=== PATIENT | female | born 1955 | race Caucasian/White ===

== ENCOUNTER 2016-11-11 03:26 | Inpatient (IN) | payer OTHER ==
[2016-11-11] VITALS (8 sets, daily range): BP systolic 108–147; BP diastolic 56–85; PULSE 78–105; RESP 15–20; O2SAT 86–98
--- NOTE | 2016-11-11 03:24 | ED.REPORT ---
HPI-Chest Pain 40 and Over Date of Service November 11, 2016 ED Provider: Vinh Sainz MD The pt is a 61 y/o female w/ a hx of COPD, depression, diabetes HTN, and high cholesterol presenting to the ED complaining of neck, shoulder and chest pain which woke her from sleep. She describes the pain as a heavy pressure and a 7/ 10 severity. She is also experiencing nausea, vomiting, diaphoresis. She is taking metformin and Estroven, as well as several other meds. She has never had any stroke symptoms or heart problems in the past. She denies change in exercise capacity, or intermittent claudication/ cramping in her legs when she walks. She continues to smoke a half pack a day, and formerly smoked a pack a day. Nursing Notes Stated Complaint: STEMI Chief Complaint: Trauma/Critical Care Nursing Notes Reviewed: Yes General Time Seen by MD: 03:24 Chief Complaint Chest pain Hx Obtained From: Patient Arrived By: Ambulance Sudden in Onset?: Yes Symptom Duration: Since onset Recent Healthcare: No recent doctor visit, No recent hospitalization Similar Sx Previous: No Risk Factors )( CAD Risk Stratification Diabetes mellitus Family history Hyperlipidemia Hypertension Smoking Risk factors reviewed Past Medical History Past Medical History COPD Depression Diabetetes HTN High cholesterol Past Surgical History None reported Smoking History Unknown if Ever Smoker Ambulatory Status Independent Review of Systems Denies cramping in legs while she walks. Cardiovascular: Reports: Chest pain GI: Reports: Nausea, Vomiting Musculoskeletal: Reports: Joint pain (Shoulder), Neck pain Skin: Reports Diaphoresis Complete sys rev & neg: except as marked. Physical Exam Initial Vital Signs Vital Signs (First) Date Time Temp Pulse Resp B/P Pulse Ox O2 Delivery O2 Flow Rate FiO2 11/11/16 03:31 36.4 86 15 147/85 95 Nasal Cannula 4 Initial VS: Reviewed General/Constitutional: Awake, Alert Respiratory / Chest: Breath sounds NL, Breath sounds = bilat, No respiratory distress, No rales, No rhonchi, No wheezing, No stridor, No chest tenderness Cardiovascular: Heart rate NL, Regular rhythm, Heart sounds NL, No murmurs, Peripheral circulation NL, Pulses = bilaterally, No gross BP differential Abdomen: Soft, Non-tender Neck: Atraumatic, Full range of motion Back: Atraumatic, Full range of motion Lower Extremity / Pelvis / MS: Atraumatic, Full range of motion Skin: Color NL, No rash, Warm Head / Eyes: Atraumatic, Normocephalic ENT: Atraumatic, Airway patent, Mucous membranes moist Interpretation & Diagnostics Lab Results Interpretation Result Diagram: 11/11/1644911/11/16449 Re-Eval/Medical Decision Med Decision/Clinical Course 61-year-old presents from [facility] with changes of an obvious inferior wall [place]. Transported as soon as that was recognized for intervention here. Seen immediately by the cath team and transported in critical condition to the cardiac cath lab manager for intervention. Source of Hx: Old records Counseled Regarding: Diagnosis, Lab results, Need for follow-up, When/why to return to ED Discharge & Departure Shift Change Sign-Out Response to Therapy: Unchanged Primary Impression: ST elevation (STEMI) myocardial infarction involving right coronary artery Disposition: Home Discharge Condition All VS Reviewed: Yes Condition: Stable Referrals: [facility] Scribe Attestation Portions of this note were transcribed by Alex Perez. I, Dr. Sainz personally performed the history, physical exam and medical decision-making; I reviewed and confirmed the accuracy of the information in the transcribed note. Signed by : Asher Moreno, 11/11/16 and 0612. copies to: [facility] Vinh Sainz MD November 11, 2016 03:24 Alex Perez November 11, 2016 06:09
[~2016-11-11 03:26] MED LIST: 0.9% Sodium Chloride 1,000 ML ONE; Heparin 1,000 Unit/mL 10 mL Inj ONE; Heparin 1,000 Units/500 mL NS Premix IV ONE; Heparin 10,000 Unit/1,000 mL NS Premix IV ONE; Nitroglycerin 50,000 mcg/250 mL D5W Premix IV ONE
[2016-11-11] MEDS ORDERED: fentaNYL-PF 50 mCg/mL 2 mL Inj ONE (03:48)
[2016-11-11] MEDS ORDERED: Atropine 1 mg/10 mL (Code) Syringe ONE ×2 (04:03→04:58)
[2016-11-11] MEDS ORDERED: Heparin 1,000 Unit/mL 10 mL Inj ONE (04:03)
[2016-11-11] MEDS ORDERED: DOPamine 800 mg/250 mL D5W Premix IV ONE (04:20)
[2016-11-11] MEDS ORDERED: NitroPRUSSIDE 25,000 mCg/mL 2 mL Inj IV ONE (04:21)
[2016-11-11] MEDS ORDERED: Heparin 1,000 Units/500 mL NS Premix IV ONE (04:21)
[2016-11-11] MEDS ORDERED: Dextrose 5% 250 ML IV ONE (04:23)
[2016-11-11] MEDS ORDERED: Phenylephrine/NS-PF 100 mCg/mL 5 mL Syringe IVPUSH ONE (04:41)
[2016-11-11 04:59] LABS: BASOPHILS % (AUTO) 0.3 % (0-3); EOSINOPHILS % (AUTO) 1.4 % (0-5); MONOCYTES % (AUTO) 6.4 % (4-12); Mean Corpuscular Hemoglobin 29.6 pg (27.0-35.0); Mean Corpuscular Volume 91.5 fL (81-100); NEUTROPHILS % (AUTO) 67.4 % (40-74); Platelet Count 242 bil/L (150-400)
[2016-11-11 05:59] LABS: Creatine Kinase 78 U/L (21-215); TROPONIN T 0.019 ug/L (0.0-0.011)
[2016-11-11] MEDS ORDERED: Sodium Chloride LOK Flush 10 mL Syringe IVFLUSH PRN (07:05)
[2016-11-11] MEDS ORDERED: Ondansetron 2 mg/mL 2 mL Inj IVPUSH PRN ×2 (07:05→07:40)
[2016-11-11] MEDS ORDERED: 0.9% Sodium Chloride 1,000 ML IV ONE (07:05)
[2016-11-11] MEDS ORDERED: Atropine 1 mg/10 mL (Code) Syringe IVPUSH PRN (07:05)
[2016-11-11] MEDS ORDERED: 0.9% Sodium Chloride 250 ML BOLUS IV PRN (07:05)
[2016-11-11] MEDS ORDERED: Polyethylene Glycol (PEG) 17 Gm Powder PO PRN (07:40)
[2016-11-11] MEDS ORDERED: Alum-Mag Hydrox-Simeth 30 mL Suspension PO PRN (07:40)
--- NOTE | 2016-11-11 07:46 | CONS ---
[address] [address] CONSULTATION REPORT PATIENT: SOY ALVAREZ : 1955 MR#: [id number] ADMIT: 11/11/2016 JOB ID: [id number] DATE OF SERVICE: 11/11/2016 CARDIOLOGY CONSULTATION NOTE-INITIAL CRITICAL CARE EVALUATION (EMERGENCY DEPARTMENT): DATE OF EVALUATION: Friday, November 11, 2016. CONSULTING PHYSICIAN: Cardiology--Constantine Hopson MD. PROBLEMS: 1. Acute coronary syndrome (ACS): a. Chest pain. b. STEMI--acute inferior myocardial infarction with: including inferior ST-elevation or reciprocal ST depression. CORONARY ARTERY RISK FACTORS: 1. Cigarette smoking-current smoking. 2. Diabetes. 3. Hypertension, treated. 4. Hyperlipidemia, treated. 5. No family history of premature coronary disease. OTHER PROBLEMS: 1. Morbid obesity. 2. COPD--mild to moderate chronic dyspnea. CHIEF COMPLAINT: "STEMI". HISTORY OF PRESENT ILLNESS: EMERGENCY DEPARTMENT PRESENTATION: I was called by the emergency department physician and met this 61-year-old woman on arrival by EMS from [facility] where she had initially presented shortly after the onset of severe retrosternal chest discomfort, intensity 7 on this on a scale of 10, which radiated to her neck and bilateral shoulders. She had associated heavy diaphoresis, but no nausea, vomiting, dyspnea or lightheadedness. Her chest discomfort was partly relieved by NTG; she had some mild residual chest discomfort on arrival and then became chest pain free early in the catheterization laboratory consistent with spontaneous recanalization of occluded artery. Initial treatment included ASA and some heparin (dose unknown). CARDIAC HISTORY: She has no prior history of heart disease. She had no premonitory symptoms. She is generally fairly active around her house without anginal symptoms. She does not have a history of heart failure or symptoms of heart failure including nocturnal dyspnea or edema. She does have some chronic exertional dyspnea, functional class II that she attributes to "COPD." She has no history of arrhythmia or current symptoms of arrhythmia including tachy palpitation, presyncope or syncope. Regarding other underlying vascular disease, she has no history of CVA and no current symptoms of TIA. No claudication, on further questioning even after we found occluded iliac arteries, she does not endorse claudication. Regarding dual antiplatelet therapy, she reports no current bleeding symptoms, no anticipated surgery, and she indicates she is reliable to take mandatory medicines if needed. ALLERGIES: In the emergent setting she reports no known allergies. I do not elicit allergy to medical contrast, seafood, fish, iodine or shellfish. MEDICATIONS: Metformin. Others not specified in the emergent setting at the time of admission. MEDICAL HISTORY: She reports she is otherwise generally well. REVIEW OF SYSTEMS: I questioned her in the emergent setting regarding a 13 point review of systems which is unremarkable, noncontributory or negative except as noted including no history of thyroid disorder. Pulmonary history includes a history of "COPD" without further details available, but she does not report symptoms of chronic bronchitis. She has mild to moderate chronic exertional dyspnea. No history of GI disorder including hepatitis, jaundice, ulcer or indigestion. PERSONAL AND SOCIAL HISTORY: Cigarettes: She has smoked cigarettes up to one pack a day currently and since age 14 (47 pack years.) Alcohol: She does not report heavy alcohol use. FAMILY HISTORY: No family history of premature coronary disease. PHYSICAL EXAMINATION: General appearance: Pleasant, morbidly obese, middle-aged woman, who is moderately uncomfortable with chest discomfort. Vital Signs: Blood pressure initially 147/85 with heart rate 86, regular in sinus rhythm on telemetry including overt ST-elevation, respiratory rate 18 and unlabored, afebrile. Pulse ox oximetry 95% on 4 L nasal cannula. Weight reported 85 kg. Neurologic and mental status: No overt focal neurologic defect noted. She is alert, oriented, appropriate and conversant. HEENT: PERRL. Conjunctivae pink. Sclerae not icteric. Mouth and mucous membranes intact with Mallampati 4. Neck: Carotid upstroke difficult to feel, but no bruit bilaterally. Jugular venous pressure difficult to assess due to body habitus supine. No palpable thyromegaly. No palpable cervical lymphadenopathy. Lungs: Clear to auscultation bilaterally, examined supine. Cardiac: No chest wall tenderness. Cardiac examination notable for regular rhythm, S4 gallop and there is no loud murmur heard. Abdomen: Markedly obese but otherwise unremarkable without tenderness, mass, hepatosplenomegaly or bruit of abdominal aortic aneurysm. Extremities: No edema. No palpable pedal pulses bilaterally, and there are no palpable bilateral femoral arterial pulses. DIAGNOSTIC STUDIES: ELECTROCARDIOGRAM: I reviewed the initial ECG from [facility] and the initial ECG here. There is sinus rhythm with marked inferior ST elevation more in lead 3 than in lead 2, and confirmatory reciprocal ST depression, as well as right precordial ST depression. The impression is acute inferior ME with likely RCA culprit. CHEST X-RAY: Not done in the emergent setting. LABORATORY: CBC includes WBC 8900 with hemoglobin 12.8, hematocrit 39.6, normal indices and platelet count 242,000. Chemistries includes potassium 4.1, creatinine 0.62. GFR 139, glucose 212. LFT unremarkable. Initial cardiac markers include CK total 78, CK-MB 3.2. Troponin T elevated at 0.019. ASSESSMENT: I discussed the findings, impressions and management considerations with the patient (no family present), with the emergency department physician from [facility], with the emergency department physician here and with the hospitalist team includin. Acute coronary syndrome with inferior acute ST elevation myocardial infarction. This is the first presentation of heart disease. 2. The clinical impression is that of her chest discomfort and overt ST-elevation on electrocardiogram is acute inferior myocardial infarction with likely right coronary artery infarct-related artery. 3. She is otherwise hypertensive and clinically stable on admission. I discussed the recommendation to proceed with emergent coronary angiogram for definitive diagnosis and to guide treatment. Decisions including medical therapy, anticipated PCI and consideration of coronary bypass surgery if needed. We discussed the procedure including possible risks and complications. I discussed bleeding, infection, blood clots; as well as injury to nerve, artery, vein or kidney and also arrhythmia, drug reaction or others. We discussed treatment as needed including pacemaker transfusion and surgery. We discussed more serious complications that are possible including stroke, heart attack, cardiac arrest, and emergency surgery, including transfer for coronary bypass surgery. After discussion and questions, he signed informed consent to proceed. RECOMMENDATIONS: 1. Cardiac catheterization with coronary angiogram and anticipated PCI--emergent. 2. Echocardiogram. 3. Admit to the hospitalist service to CCU. 4. OMT--guideline directed optimal medical therapy of her anticipated coronary disease and underlying risk factors including aspirin, statin, beta magnolia, LUCIO inhibitor later after contrast and cigarette smoking cessation. 5. Evaluate peripheral vascular disease that became evident at the catheterization including bilaterally occluded iliac arteries.
--- NOTE | 2016-11-11 08:06 | DRSVH ---
PROCEDURE: X-RAY CHEST ONE VIEW, PORTABLE ([id number]) INDICATIONS: POST CATH PROCEDURE TECHNIQUE: One view of the chest was acquired. COMPARISON: None. FINDINGS: Surgical changes and devices: None. Lungs and pleura: No pleural effusions or pneumothorax. Mild diffuse interstitial pulmonary opacity. Mediastinum: Mediastinal contours appear normal. Heart size is normal. Bones and chest wall: No suspicious bony lesions. Overlying soft tissues appear unremarkable. IMPRESSION: Mild pulmonary edema. Dictated by: Marielena Gardner M.D. on 11/11/2016 at 8:04 Approved by: Marielena Gardner M.D. on 11/11/2016 at 8:05
--- NOTE | 2016-11-11 08:17 | CS94 ---
[address] [address] DIAGNOSTIC CARDIAC CATHETERIZATION PATIENT: SOY ALVAREZ : 1955 MR#: [id number] ADMIT: 11/11/2016 JOB ID: [id number] SERVICE DATE: 11/11/2016 INSPECTOR CIRCUITRY NEGATIVE: Constantine Hopson MD PROCEDURES: 1. Coronary angiogram--emergent. 2. Left heart catheterization (LHC)--pressure measurement. 3. Percutaneous coronary intervention (PCI): a. Stent of proximal RCA--Xience (JAVED) 3.25 x 15 mm (drug-eluting stent); post dilated to 4 mm. b. Percutaneous transluminal coronary angioplasty of RPDA (balloon angioplasty for thrombus). c. Percutaneous transluminal coronary angioplasty of RPROB (balloon angioplasty for thrombus). CLINICAL DETAILS: This 61-year-old woman has no prior known heart disease; and CAD risk factors include diabetes, hypertension, hyperlipidemia, and current cigarette smoking. She presented to the catheterization laboratory after transfer to the emergency department from [facility] where she presented after the onset of severe retrosternal chest discomfort. ECG showed overt inferior ST elevation with confirmatory reciprocal ST depression. PROCEDURAL DETAILS: I met her emergently on her arrival in the emergency department. She had ongoing chest discomfort and hypertension. I discussed the findings, impressions and management considerations with her including the recommendation for emergent coronary angiogram and anticipated PCI. We discussed the procedure including possible risks and complications. After discussion and questions, she signed informed consent to proceed. She was taken to the catheterization laboratory where she was prepped sterilely and draped for the procedure. Treatment prior to the procedure included ASA and some heparin prior to transfer here. CORONARY ANGIOGRAM: 1. First arterial access was obtained in the right common femoral artery without difficulty using fluoroscopic localization over the femoral head and modified Seldinger technique to insert a 10 cm 6-Northern Irish side-arm sheath. The guidewire would not pass beyond the iliac. A reverse core wire would not pass beyond the iliac. A side-arm sheath angiogram showed occlusion of the right common iliac artery. 2. Note, there was no palpable pulse at the right groin access site. 3. Arterial access was sought at the left common femoral artery similarly using fluoroscopic localization over the femoral head and modified Seldinger technique. Note again, there was no palpable pulse at the left femoral site. Arterial access was achieved however without difficulty. Again, the sheath guidewire would not advance beyond the left iliac. A 4-Northern Irish side-arm sheath was inserted. A side-arm sheath angiogram again showed occlusion of the left iliac artery. 4. Arterial access was achieved at the right radial artery without difficulty using a micro puncture technique to insert a 6-Northern Irish slender, thin-walled, hydrophilic sheath in the right radial artery. A 6-Northern Irish JR-4 guide catheter was advanced over a long radial 1.5 mm J tipped guidewire to the aortic root for angiography. Catheters were advanced and exchanged over an exchange length guidewire. The right coronary artery was 1st imaged using the 6-Northern Irish JR-4 guide. After the intervention, the left coronary artery was imaged using a 6-Northern Irish JL-3.5 diagnostic catheter. LHC: The right coronary guide entered the left ventricle and LV pressures and pullback were recorded. PCI OF PROXIMAL RCA WITH PTCA OF RPDA AND RPLB: Diagnostic images were reviewed. Decision was made to proceed with emergent PCI of the subtotally, occluded thrombotic culprit proximal 95% RCA lesion (LATANYA 2-3 flow). For the intervention, the patient received a bolus IV heparin to achieve therapeutic ACT. A loading dose of prasugrel 60 mg chewed was given. Aliquots of NTGIC were used during the procedure. Nitroprusside 150 mcg IC was also used. PREDILATATION: The 6-Northern Irish JR-[address] guide was used for intervention. The lesion was crossed without difficulty with a BMW wire--0.014 inches x 190 cm--which was placed distally in the RCA. The proximal RCA culprit lesion was pre-dilated with a PTCA balloon trek--2.5 x 15 mm--inflated to 6 atmospheres to maximum 8 atmospheres. The lesion was improved. STENT: The lesion was treated with a Xience JAVED--3.25 x 15 mm--deployed across the lesion at 18 atmospheres. POSTDILATATION: The stent was post dilated with a noncompliant balloon Trek NC--3.75 x 12 mm--inflated within the stented segment to maximum of 20 atmospheres. (Estimated post dilated stent diameter 4.0 mm). PTCA (balloon angioplasty) of RPDA and RPLB: Both RPDA and RPLB had diffuse narrowing, as well as apparent distal thrombus. They were both treated with initially by passing a balloon trek--2.5 x 15 mm--into the artery; then additionally treated with balloon inflations to maximum 4 atmospheres. The RPDA was substantially improved. The RPLB was improved in its proximal segment where it had been occluded. Completion angiogram showed an excellent angiographic result at the culprit lesion with no residual stenosis, LATANYA-3 flow, and no angiographic complication. Estimated door to balloon time was about 81 minutes. Procedure without difficulty. Patient tolerated the procedure well. No complications. Arterial hemostasis at the right radial artery was achieved with a TR band. The bilateral femoral artery sheaths were sutured in place to be maintained to flush an arterial pressure transducer until removed when ACT is lower. The patient was transferred from the catheterization laboratory chest-pain free and in stable and improved condition to the CCU for ongoing care including by the admitting hospitalist service. I discussed the procedure findings and management considerations with the patient (no family present); with the hospitalist team; and with Cardiology. FINDINGS: 1. LMCA: Intact. 2. LAD: Intact without angiographic obstructive lesions. The left anterior descending coronary artery is a large transapical vessel with a large branching diagonal branch. 3. LCX: Intact. No angiographic stenoses noted. 4. RCA: Dominant. Note, culprit subtotal 95% tubular proximal RCA culprit lesion (LATANYA 2-3 flow). There is a visible filling defect consistent with thrombus at the site of the lesion. During the procedure, the distal RPDA and RPLB are occluded with apparent thrombus. 5. LHC: LVD 28; and no systolic gradient across the aortic valve on pullback. 6. Left iliac artery: Occluded. 7. Right iliac artery: Occluded. CONCLUSIONS: 1. PCI of proximal RCA--Xience 3.25 x 15 mm JAVED; post dilated to 4.0 mm. ACS--STEMI; acute inferior myocardial infarction; culprit proximal RCA lesion, subtotal lesion. 2. CAD (coronary artery disease)--single-vessel CAD of proximal RCA and RPDA and RPBL. 3. Peripheral vascular disease--occluded bilateral iliac arteries. 4. Elevated LVED. RECOMMENDATIONS: 1. ECASA 81 mg daily. 2. Plavix--plan one year if well tolerated including ongoing Cardiology followup. I discussed with the patient the critical importance of mandatory dual antiplatelet therapy and not to stop Plavix for any reason without immediate Cardiology consultation. 3. Admit to Hospitalist service for ongoing care. 4. Echocardiogram. 5. OMT--guideline directed optimal medical therapy for CAD and underlying risk factors including aspirin, Plavix, high-intensity statin, beta-magnolia and later LUCIO inhibitor. 6. Cigarette smoking cessation discussed with the patient. 7. Evaluate peripheral vascular disease in the lower extremities.
--- NOTE | 2016-11-11 13:46 | DRSVH ---
[facility] [address] [place] [address] Echocardiogram Report Name: SOY ALVAREZ RStudy Date: 11/11/2016 Height: 61 in Hospital Exam Location: [facility] Weight: 186 lb Gender: Other BSA: 1.9 m2 : 1955 Age: 61 yrs BP: 126/73 mmHg Reason For Study: POST-STEMI Ordering Physician: Performed By: Yasir Brownlee Interpretation Summary Technically difficult study due patient position. 1) Normal left ventricular thickness and size with mildly reduced functoin (EF 45-50%). 2) Hypokinesis of the basal to mid inferior wall and basal to mid inferolateral wall. 3) Normal right ventricular size and function. 4) Mild to moderate mitral regurgitation present. 5) No prior Echo available for comparison. Procedure: A two-dimensional transthoracic echocardiogram with color flow and Doppler was performed. The study quality was technically difficult. There is no prior echocardiogram noted for this patient. A contrast injection of Definity was performed to improve assessment of LV function. The patient was in sinus tachycardia with heart rates between 97-105 bpm during the exam. Left Ventricle: The left ventricle is grossly normal size. There is normal left ventricular wall thickness. The ejection fraction is estimated to be 45- 50%. Left ventricular systolic function is mildly reduced. Hypokinesis of the basal to mid inferior wall and basal to mid inferolateral wall. Diastolic function could not be accurately assessed due to tachycardia. Right Ventricle: The right ventricle grossly appears normal in size with probable normal systolic function. Atria: The left atrium grossly appears normal in size. The right atrium grossly appears normal in size. There is no Doppler evidence for an interatrial shunt. Mitral Valve: The mitral valve leaflets appear to open well. There is mild to moderate mitral regurgitation. Aortic Valve: The aortic valve is not well visualized. There is no hemodynamically significant valvular aortic stenosis. No aortic regurgitation is present. Tricuspid Valve: The tricuspid valve is not well visualized. Pulmonary artery pressures cannot be estimated because of the lack of a measurable TR jet velocity. Pulmonic Valve: The pulmonic valve is not well visualized. Great Vessels: The aortic root is normal size. The dimensions of the ascending aorta are normal. The pulmonary artery is not well visualized, but is probably normal size. The IVC is of normal diameter and collapses greater than 50% with a sniff. This suggests a low right atrial pressure of 3 mm Hg. Pericardium/ Pleura There is no pericardial effusion. There is no pleural effusion. MMode/2D Measurements & Calculations LVOT diam: 1.9 cm LA A4 area: 13.8 cm RA area: 7.8 cm2 asc Aorta Diam: 2.5 cm LA length (vol): 3.9 cm Doppler Measurements & Calculations Ao V2 max MV E max keegan PA V2 max MV V2 mean : 118.5 cm/sec : 124.9 cm/sec : 71.0 cm/sec : 80.4 cm/sec Ao max PG MVA(VTI): 2.4 cm2 PA mean PG MV mean P.3 mmHg : 5.6 mmHg : 0.95 mmHg MV V2 VTI: 19.8 cm Ao mean PG LVOT Max Keegan : 80.5 cm/sec MEGAN(I,D): 2.4 cm sev ratio Ao V2 mean LV V1 max PG PA V2 mean MEGAN indexed to BSA : 72.6 cm/sec : 46.0 cm/sec (cm^2/m^2): 1.3 Ao V2 VTI: 20.1 cmLV V1 VTI: 16.4 cm PA pr(Accel) MEGAN(V,D): 2.0 cm2 : 51.0 mmHg Reading Physician:01:46 PM
--- NOTE | 2016-11-11 14:24 | PCM.HPMED ---
Subjective Date of Service November 11, 2016 Primary Provider: Admitting Physician: Constantine Hopson MD Primary Care Physician: Other,Physician Attending Physician: Constantine Hopson MD Admit Status: From the Emergency Department, Admit to [facility] Team Chief Complaint: 61-year-old woman with history of hypertension, tobacco abuse and diabetes mellitus presents with acute coronary syndrome History of Present Illness: The patient was in her usual state of health until awakening in the middle of the night of 11/10/16 with acute onset neck pain. The pain radiated to both arms and to her jaw. Some time later she developed anterior precordial heaviness. This was associated with upset stomach, anxiety and dyspnea. There were no exacerbating or palliating factors. She was asleep at onset. She does not recall the time. She has had no prior exertional chest pain or anginal equivalent symptoms. She is a cigarette smoker and has type II diabetes mellitus. She has no exercise habits, but performs work and daily living without limiting symptoms. Family history is negative for premature coronary artery disease. EKG revealed 2-[address] elevations in inferior leads. She presented to the emergency department at approximately 03:00 hour, and underwent PCI with JAVED deployed in RCA. Review of Systems: 11 system review of system form significant findings in history of present illness. Current incidental note is made of bladder discomfort due to immobilization and mild pain at the arterial puncture sites. Negatives include claudication symptoms. Allergies Coded Allergies: Penicillins (Verified Allergy, Unknown, 11/11/16) Sulfa (Sulfonamide Antibiotics) (Verified Allergy, Unknown, 11/11/16) Uncoded Allergies: "mycins" (Allergy, Unknown, 11/11/16) Home Medications Medication reconciliation is pending at this time. 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, aircraft Hx Alcohol Use: Yes (Occasional) Alcoholic Drinks Per Day: Only on occasion Hx Substance Use: No Hx Tobacco Use: Yes Smoking Status: Current Every Day Smoker Living Arrangement: with Family () Exam Vital Signs Vital Sign - Last Date Time Temp Pulse Resp B/P Pulse Ox O2 Delivery O2 Flow Rate FiO2 11/11/16 11:54 Supplement Oxygen 11/11/16 11:54 36.7 79 16 118/56 94 4.00 Exam Constitutional: Lombardi face and slightly plethoric without acne or hirsutism; no acute distress; vital signs noted Eyes: sclerae anicteric, no conjunctival pallor, ENMT: ears, nose atraumatic; oral mucosa Neck: supple, JVD absent Chest: symmetric, no pain or lesions Resp: auscultation clear, no wheezes, rales or dullness Cardiac: S1, S2, regular, no murmur Abdomen: bowel sounds present, nontender, no organomegaly Musculoskeletal: no joints with acute erythema, swelling Skin and soft tissues: no rash; no pitting edema; no atrophic skin changes; no striae Peripheral pulses: Diminished at feet bilaterally; bilateral femoral arterial puncture sites intact Lymphatic: no adenopathy cervical Neurological: Cranial Nerves - face symmetric Reflexes - BJ, KJ symmetric Motor - upper extremity 5/5 strength, normal tone Coordination - normal movement, no tremor Sensory - light touch intact Psych & Mental Status - oriented Lab and Diagnostics Labs Troponin at 04:50 was 0.019 Result Diagram: 11/11/1644911/11/16449 X-Rays, CTs and MRIs PROCEDURE: X-RAY CHEST ONE VIEW, PORTABLE ([id number]) IMPRESSION: Mild pulmonary edema. Dictated by: Marielena Gardner M.D. on 11/11/2016 at 8:04 . 12-lead ECG 11/11 03:24 sinus rhythm rate 86, QTC 470, 2-[address] elevation II, aVF, III Cardiac Echo Impressions Echocardiogram Report Name: SOY ALVAREZ Study Date: 11/11/2016 Interpretation Summary Technically difficult study due patient position. 1) Normal left ventricular thickness and size with mildly reduced functoin (EF 45-50%). 2) Hypokinesis of the basal to mid inferior wall and basal to mid inferolateral wall. 3) Normal right ventricular size and function. 4) Mild to moderate mitral regurgitation present. 5) No prior Echo available for comparison. Additional Diagnostics: DIAGNOSTIC CARDIAC CATHETERIZATION PATIENT: SOY ALVAREZ : 1955 SERVICE DATE: 11/11/2016 RETAIL RECEIVING CLERK: Constantine Hopson MD FINDINGS: 1. LMCA: Intact. 2. LAD: Intact without angiographic obstructive lesions. The left anterior descending coronary artery is a large transapical vessel with a large branching diagonal branch. 3. LCX: Intact. No angiographic stenoses noted. 4. RCA: Dominant. Note, culprit subtotal 95% tubular proximal RCA culprit lesion (LATANYA 2-3 flow). There is a visible filling defect consistent with thrombus at the site of the lesion. During the procedure, the distal RPDA and RPLB are occluded with apparent thrombus. 5. LHC: LVD 28; and no systolic gradient across the aortic valve on pullback. 6. Left iliac artery: Occluded. 7. Right iliac artery: Occluded. CONCLUSIONS: 1. PCI of proximal RCA--Xience 3.25 x 15 mm JAVED; post dilated to 4.0 mm. ACS--STEMI; acute inferior myocardial infarction; culprit proximal RCA lesion, subtotal lesion. 2. CAD (coronary artery disease)--single-vessel CAD of proximal RCA and RPDA and RPBL. 3. Peripheral vascular disease--occluded bilateral iliac arteries. 4. Elevated LVED. . Assessment & Plan 61-year-old woman with multiple cardiac risk factors presents with acute coronary syndrome, underwent PCI subsequent with EKG confirmed resolution of infarction and minimal troponin elevation. # Acute coronary syndrome, present on admission. - Post catheterization orders per cardiology service - Risk factor intervention: Aspirin, Plavix, atorvastatin - Consider beta magnolia # Acute systolic congestive heart failure, present on admission. Borderline LVEF reduction at 45-50%. Possibly reversible ischemic cardiomyopathy related to current ACS. - Consider LUCIO inhibitor # Type II diabetes mellitus, chronic. - 4 times a day capillary blood glucose - Glucose control goals: Random less than 180, fasting less than 140, none less than 70 - Insulin as needed, divided 50-50 long-acting and nutritional/correctional # Hypertension, acute on chronic. - Plan to adjust hypertensive therapy to include beta magnolia and/or LUCIO inhibitor # Tobacco abuse, chronic - M.D. counseling performed # Depression, chronic. Possibly exacerbated by acute cardiac disease and diabetes. - Reconcile meds and continue current antidepressant medications # Peripheral vascular disease, chronic. Cardiac catheterization revealed stenosis of iliac vessels. Patient is asymptomatic. - Step I peripheral vascular disease interventions: Smoking cessation; Exercise program; cilostazol as needed for symptoms # COPD, chronic. No evidence of bronchospasm at time of admission. - Bronchodilators when necessary CODE STATUS is full code Patient is admitted with inpatient status to the expectation of hospital admission for 2 nights. Likely for discharge on 11/12. Pain Evaluation: Adequate Pain Control VTE Prophylaxis: Sub-Q Enoxaparin Resuscitation Status: CPR: Attempt Resuscitation Time spent 70 minutes Rashaun David MD November 11, 2016 14:24
--- NOTE | 2016-11-11 14:24 | NUR ---
DOWNGRADE TO PCC Patient stable throughout entire recover, vitals WNL, groin sites soft, non-tender, no oozing or hematoma present. Right radial site appears and feels normal as well. Received orders for patient to downgrade to PCC w/ tele. If she continues to remain stable, will likely discharge tomorrow morning. Report given to Leigha Rodriguez RN on PCC.
[2016-11-12] VITALS (10 sets, daily range): BP systolic 106–143; BP diastolic 63–81; PULSE 78–104; RESP 16–20; O2SAT 89–96
[2016-11-12 02:56] LABS: Mean Corpuscular Volume 92.3 fL (81-100)
[2016-11-12 03:41] LABS: TROPONIN T 2.26 ug/L (0.0-0.011)
--- NOTE | 2016-11-12 05:41 | NUR ---
Cardiac Pt denies pain of any sort. VSS. Bilateral groin sites C/D/I without apparent complications. Right wrist site C/D/I without apparent complications. No overt complications noted. Pt anticipating d/c to home if appropriate
[2016-11-12 09:15] LABS: TROPONIN T 1.52 ug/L (0.0-0.011)
--- NOTE | 2016-11-12 11:41 | NUR ---
Social Work- Brief Note/Readiness for Discharge Data: EMR reviewed. Pt is a 61 year old female admitted 11/11/16 for STEMI per H&P. Pt is not medically stable for discharge at this time, anticipated discharge later today pending Cardiology. Pt's insurance is [employer]. Pt's PCP is in [place], pt could not recall the name of the provider but confirmed that she has one. SW met with pt at bedside regarding discharge plan, SW role explained. Pt alert and oriented x3. Pt resides in [place] and was visiting family in [place] with her . Pt is independent at baseline. Pt has no DPOA, SW provided paperwork to pt at bedside. Pt has no anticipated discharge needs. Pt to discharge to family's home with before returning to [place]. ADILIA wrote phone number on whiteboard. SW will continue to follow. Assessment: Pt who is independent at baseline. Plan: Pt has no anticipated discharge needs. Pt to discharge to family's home with before returning to [place]. ADILIA wrote phone number on whiteboard. SW will continue to follow. MERE Qureshi
[2016-11-12] MEDS ORDERED: TIOT4MIS5 IH (13:11)
[2016-11-12] MEDS ORDERED: MOME13HF2 IH (13:11)
[2016-11-12] MEDS ORDERED: METF-495 PO (13:11)
[2016-11-12] MEDS ORDERED: LISI-571 PO (13:11)
[2016-11-12] MEDS ORDERED: ATOR80TA PO (13:11)
[2016-11-12] MEDS ORDERED: SERT25TA2 PO (13:11)
[2016-11-12] MEDS ORDERED: ASPI-973 PO (13:11)
--- NOTE | 2016-11-12 13:12 | NUR ---
Med Rec Med Rec completed with info from pt. spouse, and med bottles. Spouse to bring medications home. Primary nurse, Leigha Rodriguez RN to notify attending doctor of med rec update.
--- NOTE | 2016-11-12 14:40 | PCM.PNMED ---
Subjective Date of Service November 12, 2016 Subjective 61-year-old woman with history of hypertension, tobacco abuse and diabetes mellitus presents with acute coronary syndrome. No recurrent chest pain. No dyspnea orthopnea. No muscle cramps or leg complaints. Exam Vital Signs Vital Sign - Last Date Time Temp Pulse Resp B/P Pulse Ox O2 Delivery O2 Flow Rate FiO2 11/12/16 11:27 89 11/12/16 11:13 36.6 18 106/66 95 Room Air 11/12/16 03:24 2.00 Intake and Output 11/11/16 11/11/16 11/12/16 Cumulative From/Thru 15:00 23:00 07:00 11/11/16 08:00 - 11/12/16 06:28 Intake Total 100 ml 200 ml 300 ml Output Total 850 ml 1000 ml 1850 ml Balance -750 ml -800 ml -1550 ml Intake Oral 100 ml 200 ml 300 ml Output Urine Total 850 ml 1000 ml 1850 ml # Bowel Movements 0 0 Exam General: Centrally obese, no acute distress HEENT: sclerae anicteric, oral mucosa moist Neck: no JVD Chest: clear to auscultation Cardiac: S1S2, no murmur Abdomen: BS normal, non-tender Extremities: No edema; reduced pedal pulses Neuro: A&O, cranial nerves symmetric, motor strength 5/5, coordination normal IVs and Medications Medications Reviewed: Medications were reviewed in detail Lab and Diagnostics Result Diagram: 11/12/16 0235 11/12/16 0830 X-Rays, CTs and MRIs PROCEDURE: X-RAY CHEST ONE VIEW, PORTABLE ([id number]) IMPRESSION: Mild pulmonary edema. Dictated by: Marielena Gardner M.D. on 11/11/2016 at 8:04 . 12-lead ECG 11/11 03:24 sinus rhythm rate 86, QTC 470, 2-[address] elevation II, aVF, III Cardiac Echo Impressions Echocardiogram Report Name: ANTONIO SOY Wilfrid Study Date: 11/11/2016 Interpretation Summary Technically difficult study due patient position. 1) Normal left ventricular thickness and size with mildly reduced functoin (EF 45-50%). 2) Hypokinesis of the basal to mid inferior wall and basal to mid inferolateral wall. 3) Normal right ventricular size and function. 4) Mild to moderate mitral regurgitation present. 5) No prior Echo available for comparison. Additional Diagnostics DIAGNOSTIC CARDIAC CATHETERIZATION PATIENT: SOY ALVAREZ : 1955 SERVICE DATE: 11/11/2016 DIVINITY PROFESSOR: Constantine Hopson MD FINDINGS: 1. LMCA: Intact. 2. LAD: Intact without angiographic obstructive lesions. The left anterior descending coronary artery is a large transapical vessel with a large branching diagonal branch. 3. LCX: Intact. No angiographic stenoses noted. 4. RCA: Dominant. Note, culprit subtotal 95% tubular proximal RCA culprit lesion (LATANYA 2-3 flow). There is a visible filling defect consistent with thrombus at the site of the lesion. During the procedure, the distal RPDA and RPLB are occluded with apparent thrombus. 5. LHC: LVD 28; and no systolic gradient across the aortic valve on pullback. 6. Left iliac artery: Occluded. 7. Right iliac artery: Occluded. CONCLUSIONS: 1. PCI of proximal RCA--Xience 3.25 x 15 mm JAVED; post dilated to 4.0 mm. ACS--STEMI; acute inferior myocardial infarction; culprit proximal RCA lesion, subtotal lesion. 2. CAD (coronary artery disease)--single-vessel CAD of proximal RCA and RPDA and RPBL. 3. Peripheral vascular disease--occluded bilateral iliac arteries. 4. Elevated LVED. . Assessment & Plan 61-year-old woman with multiple cardiac risk factors presents with acute coronary syndrome, underwent PCI subsequent with EKG confirmed resolution of infarction and minimal troponin elevation. # Acute coronary syndrome, present on admission. - Risk factor intervention: Aspirin 81 mg, atorvastatin 80 mg, these were pre- existing medications - smoking cessation counseling, diabetic control - JAVED PCI - Plavix -Tolerating low-dose beta magnolia # Acute systolic congestive heart failure, present on admission. Borderline LVEF reduction at 45-50%. Possibly reversible ischemic cardiomyopathy related to current ACS. - Previously on lisinopril 5 mg daily, currently systolic blood pressure 100- 110 on beta magnolia with no lisinopril - Consider discharge doses of beta magnolia and lisinopril after observing blood pressure today # Type II diabetes mellitus, chronic. - 4 times a day capillary blood glucose - Glucose control goals: Random less than 180, fasting less than 140, none less than 70 - Insulin as needed, while inpatient - Discharge on metformin; patient should consider cardioprotective diabetic management with GLP-1 agonist or SGLT2 inhibitor # Hypertension, acute on chronic. - Plan to discharge on metoprolol +/- LUCIO inhibitor # Tobacco abuse, chronic - M.D. counseling performed # Depression, chronic. Possibly exacerbated by acute cardiac disease and diabetes. - Reconcile meds and continue current antidepressant medications # Peripheral vascular disease, chronic. Cardiac catheterization revealed stenosis of iliac vessels. Patient is asymptomatic. - Step I peripheral vascular disease interventions: Smoking cessation; Exercise program; cilostazol as needed for symptoms - Follow-up with PCP # COPD, chronic. No evidence of bronchospasm at time of admission. - Bronchodilators when necessary CODE STATUS is full code Patient is admitted with inpatient status to the expectation of hospital admission for 2 nights. Discharge on 11/13 if she is clinically stable today. VTE Prophylaxis: Sub-Q Enoxaparin Resuscitation Status: CPR: Attempt Resuscitation Time spent 35 minutes Rashaun David MD November 12, 2016 14:40
[2016-11-13 03:54] VITALS: BP 120/70; PULSE 76; RESP 16; O2SAT 93
--- NOTE | 2016-11-13 04:38 | NUR ---
Groin and Radial sites/Sleep Patient's bilateral groin sites and right radial site are soft, non-tender, with no drainage noted. Patient asleep overnight. No reports of pain.
[2016-11-13 08:31] VITALS: PULSE 84
[2016-11-13 08:47] VITALS: BP 127/71; PULSE 95; RESP 16; O2SAT 92
--- NOTE | 2016-11-13 10:15 | PCM.DIMED ---
Discharge Instructions Date of Service November 13, 2016 Dates of Hospitalization November 11, 2016 at 03:34 Discharge Diagnosis Discharge Diagnosis # STEMI (inferior myocardial infarction) # Acute systolic congestive heart failure, resolved. # Type II diabetes mellitus # Hypertension, astable # Tobacco abuse, chronic # Depression, chronic. # Peripheral vascular disease, chronic. # COPD, chronic. Diet Discharge Diet: Heart Healthy Activity Discharge Activity: Limited until seen by PCP Patient Instructions Patient Instructions Please see your doctor within the next week. They will need to send you to cardiology in [place] Hold your metformin until November 14, then resume as usual. Chilo Mata MD November 13, 2016 10:15
[2016-11-13] MEDS ORDERED: METO25TA6 PO (10:18)
[2016-11-13] MEDS ORDERED: CLOP75TA28 PO (10:18)
[2016-11-13] MEDS ORDERED: ATOR80TA PO (10:18)
[2016-11-13] MEDS ORDERED: LISI-571 PO (10:18)
[2016-11-13] MEDS ORDERED: ASPI-973 PO (10:18)
[2016-11-13] MEDS ORDERED: NITR0.4T SL (10:18)
--- NOTE | 2016-11-13 11:12 | NUR ---
P: Chest Pain I: Pt denies chest pain or SOB. Up in room independently. Saline lock dc'd with catheter intact. Taking diet and fluids well. voiding qs. Room air with good sats. Discharge instructions given including care notes, Rx, Heart attack bouncing back and info on stents. Heart Healthy diet care note as well and post heart cath info. E: Stable S: Alert and oriented. Indicated understanding of discharge instructions. Discharged [id number] with spouse.
--- NOTE | 2016-11-13 12:44 | NUR ---
Social Work Note: Discharge Data& Assessment: EMR reviewed. Per pt is medically ready for discharge. Rose Mary Conway is a 61 year old female admitted on 11/11/2016 for STEMI. Per pt is medically improved and ready for discharge. SW met with pt and pt at bedside to confirm discharge plan and assess for any unmet needs. Pt is ambulating at baseline and plans to stay in [place] with her family for a couple more days to recover from hospitalization prior to returning to [place]. Pt transporting pt home. Pt and pt deny any other needs. No other discharge needs identified. Plan: Per pt is medically ready to discharge home via POV. Pt and pt deny any other needs. No other discharge needs identified. MERE Valdes
--- NOTE | 2016-11-13 14:40 | PCM.DC.MED ---
Discharge Summary Date of Service November 13, 2016 Dates of Hospitalization Date of Hospital Admission November 11, 2016 at 03:34 Date of Discharge: November 13, 2016 Providers: Admitting Physician: Constantine Hopson MD Primary Care Physician: Other,Physician Attending Physician: Constantine Hopson MD Diagnosis at Time of Discharge Diagnosis at Time of Discharge # STEMI (inferior myocardial infarction) # Acute systolic congestive heart failure, resolved. # Type II diabetes mellitus # Hypertension, astable # Tobacco abuse, chronic # Depression, chronic. # Peripheral vascular disease, chronic. # COPD, chronic. Consultations Interventional cardiology, Dr. Hopson Procedures XRay, CTs & MRIs PROCEDURE: X-RAY CHEST ONE VIEW, PORTABLE ([id number]) IMPRESSION: Mild pulmonary edema. Dictated by: Marielena Gardner M.D. on 11/11/2016 at 8:04 . ECG 12 Lead 11/11 03:24 sinus rhythm rate 86, QTC 470, 2-[address] elevation II, aVF, III Cardiac Echo Impression Echocardiogram Report Name: SOY ALVAREZ Study Date: 11/11/2016 Interpretation Summary Technically difficult study due patient position. 1) Normal left ventricular thickness and size with mildly reduced functoin (EF 45-50%). 2) Hypokinesis of the basal to mid inferior wall and basal to mid inferolateral wall. 3) Normal right ventricular size and function. 4) Mild to moderate mitral regurgitation present. 5) No prior Echo available for comparison. Invasive Procedures Coronary interventional PCI. FINDINGS: 1. LMCA: Intact. 2. LAD: Intact without angiographic obstructive lesions. The left anterior descending coronary artery is a large transapical vessel with a large branching diagonal branch. 3. LCX: Intact. No angiographic stenoses noted. 4. RCA: Dominant. Note, culprit subtotal 95% tubular proximal RCA culprit lesion (LATANYA 2-3 flow). There is a visible filling defect consistent with thrombus at the site of the lesion. During the procedure, the distal RPDA and RPLB are occluded with apparent thrombus. 5. LHC: LVD 28; and no systolic gradient across the aortic valve on pullback. 6. Left iliac artery: Occluded. 7. Right iliac artery: Occluded. CONCLUSIONS: 1. PCI of proximal RCA--Xience 3.25 x 15 mm JAVED; post dilated to 4.0 mm. ACS--STEMI; acute inferior myocardial infarction; culprit proximal RCA lesion, subtotal lesion. 2. CAD (coronary artery disease)--single-vessel CAD of proximal RCA and RPDA and RPBL. 3. Peripheral vascular disease--occluded bilateral iliac arteries. 4. Elevated LVED. RECOMMENDATIONS: 1. ECASA 81 mg daily. 2. Plavix--plan one year if well tolerated including ongoing Cardiology followup. I discussed with the patient the critical importance of mandatory dual antiplatelet therapy and not to stop Plavix for any reason without immediate Cardiology consultation. 3. Admit to Hospitalist service for ongoing care. 4. Echocardiogram. 5. OMT--guideline directed optimal medical therapy for CAD and underlying risk factors including aspirin, Plavix, high-intensity statin, beta-magnolia and later LUCIO inhibitor. 6. Cigarette smoking cessation discussed with the patient. 7. Evaluate peripheral vascular disease in the lower extremities. Constantine Hopson MD 11/11/16 0614 Other Diagnostics DIAGNOSTIC CARDIAC CATHETERIZATION PATIENT: SOY ALVAREZ : 1955 SERVICE DATE: 11/11/2016 DISPLAY CARD WRITER: Constantine Hopson MD FINDINGS: 1. LMCA: Intact. 2. LAD: Intact without angiographic obstructive lesions. The left anterior descending coronary artery is a large transapical vessel with a large branching diagonal branch. 3. LCX: Intact. No angiographic stenoses noted. 4. RCA: Dominant. Note, culprit subtotal 95% tubular proximal RCA culprit lesion (LATANYA 2-3 flow). There is a visible filling defect consistent with thrombus at the site of the lesion. During the procedure, the distal RPDA and RPLB are occluded with apparent thrombus. 5. LHC: LVD 28; and no systolic gradient across the aortic valve on pullback. 6. Left iliac artery: Occluded. 7. Right iliac artery: Occluded. CONCLUSIONS: 1. PCI of proximal RCA--Xience 3.25 x 15 mm JAVED; post dilated to 4.0 mm. ACS--STEMI; acute inferior myocardial infarction; culprit proximal RCA lesion, subtotal lesion. 2. CAD (coronary artery disease)--single-vessel CAD of proximal RCA and RPDA and RPBL. 3. Peripheral vascular disease--occluded bilateral iliac arteries. 4. Elevated LVED. . Brief History The patient was in her usual state of health until awakening in the middle of the night of 11/10/16 with acute onset neck pain. The pain radiated to both arms and to her jaw. Some time later she developed anterior precordial heaviness. This was associated with upset stomach, anxiety and dyspnea. There were no exacerbating or palliating factors. She was asleep at onset. She does not recall the time. She has had no prior exertional chest pain or anginal equivalent symptoms. She is a cigarette smoker and has type II diabetes mellitus. She has no exercise habits, but performs work and daily living without limiting symptoms. Family history is negative for premature coronary artery disease. EKG revealed 2-[address] elevations in inferior leads. She presented to the emergency department at approximately 03:00 hour, and underwent PCI with JAVED deployed in RCA. Hospital Course 61-year-old woman with multiple cardiac risk factors presents with acute coronary syndrome, underwent PCI subsequent with EKG confirmed resolution of infarction and minimal troponin elevation. # Acute coronary syndrome, present on admission. - Risk factor intervention: Aspirin 81 mg, atorvastatin 80 mg, these were pre- existing medications - smoking cessation counseling, diabetic control - JAVED PCI - Plavix -Tolerating low-dose beta magnolia The patient underwent acute PCI as outlined above and did well postprocedure with no recurrent chest pain. No difficulty from venous access site. # Acute systolic congestive heart failure, present on admission. Borderline LVEF reduction at 45-50%. Possibly reversible ischemic cardiomyopathy related to current ACS. - Previously on lisinopril 5 mg daily, currently systolic blood pressure 100- 110 on beta magnolia with no lisinopril - Consider discharge doses of beta magnolia and lisinopril after observing blood pressure today Her mild heart failure improved with medical treatment. # Type II diabetes mellitus, chronic. - 4 times a day capillary blood glucose - Glucose control goals: Random less than 180, fasting less than 140, none less than 70 - Insulin as needed, while inpatient - Discharge on metformin; patient should consider cardioprotective diabetic management with GLP-1 agonist or SGLT2 inhibitor This remained stable throughout the hospitalization. # Hypertension, acute on chronic. - Plan to discharge on metoprolol +/- LUCIO inhibitor # Tobacco abuse, chronic - M.D. counseling performed # Depression, chronic. Possibly exacerbated by acute cardiac disease and diabetes. - Reconcile meds and continue current antidepressant medications # Peripheral vascular disease, chronic. Cardiac catheterization revealed stenosis of iliac vessels. Patient is asymptomatic. - Step I peripheral vascular disease interventions: Smoking cessation; Exercise program; cilostazol as needed for symptoms - Follow-up with PCP # COPD, chronic. No evidence of bronchospasm at time of admission. - Bronchodilators when necessary CODE STATUS is full code On the day of discharge is felt to be stable for discharge on her optimize medical treatment for coronary artery disease in the post-PCI setting. Exam Vital Signs (Last) Date Time Temp Pulse Resp B/P Pulse Ox O2 Delivery O2 Flow Rate FiO2 11/13/16 08:47 36.6 95 16 127/71 92 Room Air 11/12/16 03:24 2.00 Exam Patient was seen and examined on the day of discharge. Test 11/11/16 04:50 11/12/16 02:35 11/12/16 08:30 11/13/16 03:00 Neutrophils (%) (Auto) 67.4% (40-74) Lymphocytes (%) (Auto) 24.3% (14-46) Monocytes (%) (Auto) 6.4% (4-12) Eosinophils (%) (Auto) 1.4% (0-5) Basophils (%) (Auto) 0.3% (0-3) Hemoglobin A1c 7.1% (4.8-5.6) Total Bilirubin 0.2mg/dL (0.0-1.2) Aspartate Amino Transf (AST/SGOT) 19U/L (0-50) Alanine Aminotransferase (ALT/SGPT) 20U/L (0-32) Alkaline Phosphatase 87U/L (25-165) Total Protein 6.1g/dL (6.4-8.4) Albumin 3.5g/dL (3.4-5.0) Thyroid Stimulating Hormone (TSH) 2.990uIU/mL (0.450-4.500) Hold Cotter Top Tube Received (Received) White Blood Count 8.4th/mm3 (3.8-10.1) Red Blood Count 4.31mil/mm3 (3.90-5.20) Hemoglobin 12.5g/dL (12.0-15.6) Hematocrit 39.8% (35.0-46.0) Mean Corpuscular Volume 92.3fL (81-100) Mean Corpuscular Hemoglobin 29.0pg (27.0-35.0) Mean Corpuscular Hemoglobin Concent 31.4% (32.0-37.0) Red Cell Distribution Width 14.7% (12.3-15.4) Platelet Count 247bil/L (150-400) Total Creatine Kinase 1250U/L (21-215) Creatine Kinase MB 156.5ng/mL (0.0-5.3) Creatine Kinase MB % 12.5% (0.0-5.0) Troponin T 1.52ug/L (0.0-0.011) Sodium Level 144mEq/L (134-144) Potassium Level 4.3mEq/L (3.5-5.2) Chloride Level 105mEq/L (97-108) Carbon Dioxide Level 26mmol/L (18-29) Blood Urea Nitrogen 14mg/dL (8-27) Creatinine 0.74mg/dL (0.57-1.00) Estimat Glomerular Filtration Rate 114mL/min (>59) Glucose Level 146mg/dL (60-99) Calcium Level 9.1mg/dL (8.5-10.1) Discharge Medications Discharge Medications Aspirin (Aspirin) 81 Mg Tablet 81 MG PO DAILY Prescribed by: CHILO DEMPSEY MD Atorvastatin (Lipitor) 80 Mg Tablet 80 MG PO DAILY Prescribed by: CHILO DEMPSEY MD Clopidogrel (Clopidogrel) 75 Mg Tablet 75 MG PO DAILY Prescribed by: CHILO DEMPSEY MD Lisinopril (Lisinopril) 5 Mg Tablet 5 MG PO DAILY Prescribed by: CHILO DEMPSEY MD Metformin ER (Metformin ER) 500 Mg Tablet 2,000 MG PO DAILYWD (Reported) Metoprolol Tartrate (Metoprolol Tartrate) 25 Mg Tablet 12.5 MG PO Q6 Prescribed by: CHILO DEMPSEY MD Mometasone/Formoterol (Dulera 100 Mcg/5 Mcg Inhaler) 13 Gm Hfa.aer.ad 2 PUFFS IH BID (Reported) Sertraline HCl (Zoloft) 25 Mg Tablet 50 MG PO DAILY (Reported) Tiotropium [place] (Spiriva Respimat) 1.25 Mcg/Actuation Mist.inhal 2 PUFFS IH DAILY (Reported) As needed Nitroglycerin SL (Nitrostat) 0.4 Mg Tab.subl 0.4 MG SL Q5MIN PRN PRN For Chest Pain One every 5 minutes times 3, call 911 if still having chest pain Prescribed by: CHILO DEMPSEY MD Followup Plan Disposition: Home Discharge Diet: Heart Healthy Discharge Activity: Limited until seen by PCP Patient Instructions Please see your doctor within the next week. They will need to send you to cardiology in [place] Hold your metformin until November 14, then resume as usual. Time spent 45 minutes Chilo Dempsey MD November 13, 2016 14:40
== END 2016-11-13 11:00 | disposition home or self-care (01) | DRG 246 ==
LOC: SED 03:26 → CCU 03:34 → PCC 13:55
PROVIDERS: ADMIT Internal Medicine Cardiovascular Disease; ATTEND Internal Medicine Cardiovascular Disease
PROC: 027034Z Dilation of Coronary Artery, One Artery with Drug-eluting Intraluminal Device, Percutaneous Approach (ICD-10-PCS; principal; 2016-11-11)
PROC: 4A023N7 Measurement of Cardiac Sampling and Pressure, Left Heart, Percutaneous Approach (ICD-10-PCS; 2016-11-11)
PROC: B2111ZZ Fluoroscopy of Multiple Coronary Arteries using Low Osmolar Contrast (ICD-10-PCS; 2016-11-11)
DX: I21.11 ST elevation (STEMI) myocardial infarction involving right coronary artery (principal); I50.21 Acute systolic (congestive) heart failure; J44.9 Chronic obstructive pulmonary disease, unspecified; F17.210 Nicotine dependence, cigarettes, uncomplicated; E11.9 Type 2 diabetes mellitus without complications; I73.9 Peripheral vascular disease, unspecified; I10 Essential (primary) hypertension; F32.9 Major depressive disorder, single episode, unspecified; I25.10 Atherosclerotic heart disease of native coronary artery without angina pectoris; Z79.4 Long term (current) use of insulin; E78.5 Hyperlipidemia, unspecified; E66.01 Morbid (severe) obesity due to excess calories; I77.1 Stricture of artery